=== PATIENT | female | born 1955 | race Hispanic/Latino ===

== ENCOUNTER 2018-03-14 10:17 | Emergency (ER) | payer BC, MEDICARE ==
[2018-03-14 10:31] VITALS: RESP 18; TEMP 98.3
--- NOTE | 2018-03-14 12:32 | RAD ---
Date of service: 03/14/2018 PROCEDURE: Left Foot Radiographs. HISTORY: r/o fx COMPARISON: None. FINDINGS: BONES: Bone alignment is normal. There is no acute displaced fracture or bone destruction. There is diffuse bone demineralization. Small plantar calcaneal spur. JOINTS: Normal. SOFT TISSUES: There is moderate dorsal soft tissue swelling in the midfoot. OTHER FINDINGS: None. IMPRESSION: No acute fracture or dislocation.
--- NOTE | 2018-03-14 12:35 | RAD ---
Date of service: 03/14/2018 PROCEDURE: Left Ankle Radiographs. HISTORY: Left ankle pain and swelling COMPARISON: None FINDINGS: BONES: Bone alignment and mineralization are normal. There is no bone destruction in the ankle. There is an acute comminuted fracture in the anterior superior talus. JOINTS: Normal. No osteoarthritis. Ankle mortise maintained. Talar dome intact SOFT TISSUES: Mild anterior soft tissue swelling and small joint effusion. OTHER FINDINGS: None. IMPRESSION: Acute comminuted fracture in the anterior superior talus. No dislocation.
[2018-03-14 15:42] VITALS: BP 135/86; PULSE 68; O2SAT 98
--- NOTE | 2018-03-14 18:02 | C.PDOC ---
History Of Present Illness 62 year old female presents to the emergency department with complaints of left ankle pain status-post falling down several steps. Patient denies hitting her head or LOC. She reports that she had no symptoms prior to the fall, and simply tripped down the stairs. She denies chest pain, shortness of breath, or other complaints. Chief Complaint (Nursing): Lower Extremity Problem/Injury History Per: Patient History/Exam Limitations: no limitations Onset/Duration Of Symptoms: Hrs Current Symptoms Are (Timing): Still Present - Ankle/Foot Description Of Injury: Fell Past Medical History Reviewed: Historical Data, Nursing Documentation, Vital Signs Vital Signs: Last Vital Signs Temp 98.3 F 03/14/18 10:26 Pulse 68 03/14/18 15:41 Resp 18 03/14/18 15:41 BP 135/86 03/14/18 15:41 Pulse Ox 98 03/14/18 18:12 - Medical History PMH: Anxiety, Depression Surgical History: Endoscopy Family History: States: No Known Family Hx - Social History Hx Alcohol Use: Yes Hx Substance Use: No - Immunization History Hx Tetanus Toxoid Vaccination: No Hx Influenza Vaccination: No Hx Pneumococcal Vaccination: No Review Of Systems Except As Marked, All Systems Reviewed And Found Negative. Cardiovascular: Negative for: Chest Pain Respiratory: Negative for: Shortness of Breath Musculoskeletal: Positive for: Foot Pain (left ankle) Physical Exam - Physical Exam Appears: Non-toxic, No Acute Distress Skin: Warm, Dry Head: Atraumatic, Normacephalic Eye(s): bilateral: Normal Inspection Neck: Normal, Supple Chest: Symmetrical, No Tenderness Cardiovascular: Rhythm Regular, No Murmur Respiratory: Normal Breath Sounds, No Rales, No Rhonchi, No Wheezing Extremity: Capillary Refill (< 2 seconds), Swelling (diffuse swelling noted to the anterior lateral aspect of the left ankle), Other (diffuse ecchymosis noted to the anterior lateral aspect of the left ankle. ) ED Course And Treatment O2 Sat by Pulse Oximetry: 98 (RA) Pulse Ox Interpretation: Normal - Other Rad XR Left Foot X-Ray: Viewed By Me, Read By Radiologist Interpretation: Negative for fractures or dislocations. XR Left Ankle X-Ray: Viewed By Me, Read By Radiologist Interpretation: IMPRESSION: Acute comminuted fracture in the anterior superior talus. No dislocation. Progress Note: Plan: XR Left Ankle. XR Left Foot. Motrin 600mg PO. Spoke to podiatry resident correction officer head, reviewed with case with Dr. Caicedo. Patient is to be put in a posterior splint. Patient given [id number] instuctions with crutches. Patient instructed to follow-up with open shank coverer tomorrow. She understands the plan. Disposition - Disposition Referrals: Elmira Caicedo DPM [Staff Provider] - Disposition: HOME/ ROUTINE Disposition Time: 13:20 Condition: GOOD Additional Instructions: JASWANT GREENFIELD, thank you for letting us take care of you today. Your provider was Domingo Arambula DO and you were treated for FALL/ANKLE PAIN. The emergency medical care you received today was directed at your acute symptoms. If you were prescribed any medication, please fill it and take as directed. It may take several days for your symptoms to resolve. Return to the Emergency Department if your symptoms worsen, do not improve, or if you have any other problems. Please contact your doctor or call one of the physicians/clinics you have been referred to that are listed on the Patient Visit Information form that is included in your discharge packet. Bring any paperwork you were given at discharge with you along with any medications you are taking to your follow up visit. Our treatment cannot replace ongoing medical care by a primary care provider outside of the emergency department. Thank you for allowing the [facility] team to be part of your care today. DO NOT PUT ANY WEIGHT ON YOUR LEFT LEG. Please follow up with the open shank coverer tomorrow at 12pm for further management. Prescriptions: traMADol [Ultram] 50 mg PO Q8 PRN #15 tab PRN Reason: Pain, Severe (8-10) Instructions: How to Use Crutches, Ankle Fracture (DC), Going Up and Down Curbs or Stairs With a Walker or Crutches Forms: [employer] ([place]), Work Excuse - Clinical Impression Clinical Impression: Talus fracture - Scribe Statement The provider has reviewed the documentation as recorded by the Scribe (Chin Frias) Provider Attestation: All medical record entries made by the Scribe were at my direction and personally dictated by me. I have reviewed the chart and agree that the record accurately reflects my personal performance of the history, physical exam, medical decision making, and the department course for this patient. I have also personally directed, reviewed, and agree with the discharge instructions and disposition.
== END 2018-03-14 15:42 | disposition home or self-care (01) ==
LOC: C.ER 10:17
DX: S92.192A Other fracture of left talus, initial encounter for closed fracture (principal); W10.9XXA Fall (on) (from) unspecified stairs and steps, initial encounter